=== PATIENT | female | born 1990 | race Caucasian/White ===

== ENCOUNTER 2017-01-31 10:24 | Emergency (ER) | payer OTHER | END 2017-01-31 13:00 | disposition home or self-care (01) | LOC: FER 10:24 | DX: O99.513 Diseases of the respiratory system complicating pregnancy, third trimester (principal); J06.9 Acute upper respiratory infection, unspecified; Z3A.39 39 weeks gestation of pregnancy; F17.210 Nicotine dependence, cigarettes, uncomplicated; Z88.1 Allergy status to other antibiotic agents | CPT/HCPCS: 87804; 87899; 94640 ==

== ENCOUNTER 2017-02-12 00:07 | Inpatient (IN) | payer OTHER ==
[2017-02-12 01:01] LABS: HCT 37.3 % (37.0-47.0); HGB 12.1 g/dl (12.5-16.0); MCH 26.6 pg (25.0-31.0); MCHC 32.4 g/dL (32.0-36.0); RBC 4.55 M/uL (4.20-5.40); WBC 12.1 K/uL (4.0-10.5)
[2017-02-12 01:02] LABS: PLT 232 K/uL (150-400)
[2017-02-12 18:53] LABS: BILIRUBIN NEGATIVE (NEGATIVE); BLOOD NEGATIVE Ery/uL (NEGATIVE); CLARITY CLEAR (CLEAR); COLOR YELLOW (YELLOW); GLUCOSE (U) NORMAL (NORMAL); KETONE (U) NEGATIVE (NEGATIVE); LEUKOCYTES NEGATIVE Leu/uL (NEGATIVE); NITRITE NEGATIVE (NEGATIVE); PROTEIN NEGATIVE (NEGATIVE); SPECIFIC GRAVITY 1.015 (1.001-1.030); UROBILINOGEN 0.2 mg/dL (0.2-1.0)
[2017-02-13 06:44] LABS: HGB 10.8 g/dl (12.5-16.0); MCH 26.5 pg (25.0-31.0); MCHC 32.7 g/dL (32.0-36.0); MCV 81.1 fL (78.0-100.0); MPV 10.5 fL (6.0-9.5); RBC 4.07 M/uL (4.20-5.40); RDW 15.5 % (11.5-14.0); WBC 12.2 K/uL (4.0-10.5)
== END 2017-02-14 17:45 | disposition home or self-care (01) | DRG 775 ==
LOC: FOB 00:07
PROVIDERS: ADMIT Obstetrics & Gynecology
PROC: 10E0XZZ Delivery of Products of Conception, External Approach (ICD-10-PCS; principal; 2017-02-12)
PROC: 3E033VJ Introduction of Other Hormone into Peripheral Vein, Percutaneous Approach (ICD-10-PCS; 2017-02-12)
PROC: 10907ZC Drainage of Amniotic Fluid, Therapeutic from Products of Conception, Via Natural or Artificial Opening (ICD-10-PCS; 2017-02-12)
PROC: 0HQ9XZZ Repair Perineum Skin, External Approach (ICD-10-PCS; 2017-02-12)
DX: O99.824 Streptococcus B carrier state complicating childbirth (principal); O99.344 Other mental disorders complicating childbirth; F32.9 Major depressive disorder, single episode, unspecified; O69.81X0 Labor and delivery complicated by cord around neck, without compression, not applicable or unspecified; O70.0 First degree perineal laceration during delivery; Z3A.40 40 weeks gestation of pregnancy; Z37.0 Single live birth; O99.334 Smoking (tobacco) complicating childbirth; F17.210 Nicotine dependence, cigarettes, uncomplicated; Z88.8 Allergy status to other drugs, medicaments and biological substances
CPT/HCPCS: 36415; 81003; 88307; J2300; J2405; J2795